=== PATIENT | male | born 1985 | race Caucasian/White ===

== ENCOUNTER 2018-05-12 04:00 | Emergency (ER) | payer BC ==
[~2018-05-12] VITALS: Ht 177.8 cm; Wt 79.4 kg
[~2018-05-12 04:00] MED LIST: IBUPROFEN800 MG PO
== END 2018-05-12 15:38 | disposition home or self-care (01) ==
LOC: ED 04:00
PROC: 0T9B70Z Drainage of Bladder with Drainage Device, Via Natural or Artificial Opening (ICD-10-PCS; principal; 2018-05-12)
DX: F29 Unspecified psychosis not due to a substance or known physiological condition (principal); F15.10 Other stimulant abuse, uncomplicated; F17.200 Nicotine dependence, unspecified, uncomplicated; Z88.0 Allergy status to penicillin
CPT/HCPCS: 51701; 80053; 85025; 96361; 96374; 96375; 99284; G0480; J0515; J1630; J2060; J7030

== ENCOUNTER 2023-06-22 10:29 | Emergency (ER) | payer OTHER ==
[~2023-06-22] VITALS: Ht 177.8 cm; Wt 90.7 kg
--- OUTSIDE RECORDS SUMMARY | ~2023-06-22 | XMS | Continuity of Care Document ---
Demographics + + + | Address | [address] | | | [place] [address] | + + + | Preferred Language | Unknown | + + + | Marital Status | Never | + + + | Mosque Affiliation | Unknown | + + + | Race | White | + + + | Ethnic Group | Not or | + + + Author + + + | Author | [facility] | + + + | Organization | [facility] | + + + | Address | [address] | | | [place] [address] | + + + | Phone | | + + + Care Team Providers + + + + | Care Conductor Freight Name | Role | Phone | + + + + Unavailable | Unavailable | + + + + Allergies and Intolerances + + + + + + | date | description | facility | reaction | severity | + + + + + + | (no date) | Penicillin | [facility] | (no reaction) | (no severity) | | [facility] | | | + + + + + + | (no date) | Penicillin | [facility] | (no reaction) | (no severity) | | [facility] | | | + + + + + + | (no date) | Penicillin | [facility] | (no reaction) | (no severity) | | [facility] | | | + + + + + + | (no date) | Penicillin | [facility] | (no reaction) | (no severity) | | [facility] | | | + + + + + + Encounters No information. Functional Status No information. Immunizations No information. Medications No information. Problems + + + + | date | description | facility | + + + + | 2016-09-05 00:00 | Elevated blood pressure | [facility] | + + + + | 2016-09-05 00:00 | Contusion of left foot | [facility] | + + + + | 2016-09-21 00:00 | Encounter for medical | [facility] | | | screening examination | | + + + + | 2022-12-11 00:00 | Patient left without being | [facility] | | | seen | | + + + + Procedures No information. Results/Labs No information. Social History No information. Vital Signs + + + +---------+ | date | measurement | value | units | + + + +---------+ | 2022-12-11 00:00 | BMI | 30.8 | kg/m2 | + + + +---------+ | 2022-12-11 00:00 | BP_diastolic | 95 | mmHg | + + + +---------+ | 2022-12-11 00:00 | BP_systolic | 138 | mmHg | + + + +---------+ | 2022-12-11 00:00 | heart_rate | 92 | /min | + + + +---------+ | 2022-12-11 00:00 | height_metric | 177.8 | cm | + + + +---------+ | 2022-12-11 00:00 | height_standard | 70 | in | + + + +---------+ | 2022-12-11 00:00 | o2_saturation | 99 | % | + + + +---------+ | 2022-12-11 00:00 | respiration_rate | 22 | /min | + + + +---------+ | 2022-12-11 00:00 | temperature_metric | 36.56 | C | | | | | | + + + +---------+ | 2022-12-11 00:00 | | 97.8 | F | | | temperature_standar | | | | | d | | | + + + +---------+ | 2022-12-11 00:00 | weight_metric | 97.52 | kg | + + + +---------+ | 2022-12-11 00:00 | weight_standard | 214.99 | lb | + + + +---------+ | 2022-12-11 00:00 | weight_standard | 215 | lb | + + + +---------+"
--- OUTSIDE RECORDS SUMMARY | ~2023-06-22 | XMS | Continuity of Care Document ---
Demographics + + + | Address | [address] | | | [place] [address] | + + + | Preferred Language | Unknown | + + + | Marital Status | Never | + + + | Presybeterian Affiliation | Unknown | + + + | Race | White | + + + | Ethnic Group | Not or | + + + Author + + + | Author | [facility] | + + + | Organization | [facility] | + + + | Address | [address] | | | [place] [address] | + + + | Phone | | + + + Care Team Providers + + + + | Care Teller Coordinator Name | Role | Phone | + [...] 2016-09-05 00:00 | Elevated blood pressure | [facility] | + + + + | 2016-09-05 00:00 | Contusion of left foot | [facility] | + + + + | 2016-09-21 00:00 | Encounter for medical | [facility] | | | screening examination | | + + + + | 2022-12-11 00:00 | [facility] left without being [facility] | | [facility] | | + [...]
[2023-06-22 11:57] LABS: BASOPHILS 0.3 % (0-2); EOSINOPHILS 1.9 % (0-6); HEMATOCRIT 39.8 % (35.0-50.0); HEMOGLOBIN 13.7 g/dL (12.0-18.0); LYMPHOCYTES 25.7 % (24-44); MCH 29.5 (27-36); MCHC 34.4 g/dl (30-36); MCV 85.6 fl (81-99); MONOCYTES 10.1 % (0-12); PLATELET COUNT 350 K/uL (140-440); RBC 4.65 M/ul (4.3-5.7); RDW 12.8 (10.5-15.0)
[2023-06-22 12:12] LABS: ALBUMIN 3.6 g/dL (3.4-5.0); ALBUMIN/GLOBULIN RATIO 0.95 (1.1-2.4); ANION GAP 12.7 (7-21); BILIRUBIN, TOTAL 0.9 ng/dL (0.2-1.0); BUN/CREATININE RATIO 15.73 (6.0-28.6); CALCIUM 8.2 mg/dL (8.5-10.1); CREATININE, SERUM 0.89 mg/dL (0.70-1.30); POTASSIUM 2.7 mmol/L (3.5-5.1); PROTEIN, TOTAL 7.4 g/dL (6.4-8.2)
[2023-06-22 12:56] LABS: BILIRUBIN, URINE NEGATIVE (negative); BLOOD/HGB, URINE NEGATIVE (Negative); KETONE, URINE SMALL (Negative); LEUK ESTERASE, URINE NEGATIVE (negative); NITRITE, URINE NEGATIVE (negative)
[2023-06-22 12:57] LABS: AMPHETAMINES, UR POSITIVE (NEGATIVE); BARBITURATES, UR NEGATIVE (NEGATIVE); BENZODIAZEPINES, UR NEGATIVE (NEGATIVE); BUPRENORPHINE,UR NEGATIVE (NEGATIVE); COCAINE, UR NEGATIVE (NEGATIVE); MARIJUANA (THC), UR NEGATIVE (NEGATIVE); MDMA, UR NEGATIVE (NEGATIVE); METHADONE, UR NEGATIVE (NEGATIVE); METHAMPHETAMINE, UR POSITIVE (NEGATIVE); OPIATES, UR NEGATIVE (NEGATIVE); OXYCODONE, UR NEGATIVE (NEGATIVE); PHENCYCLIDINE, UR NEGATIVE (NEGATIVE); TRICYCLIC ANTIDEPRESSANT, UR NEGATIVE (NEGATIVE)
[2023-06-22 13:59] LABS: ERYTHROCYTE SEDIMENTATION RATE 8
[2023-06-22 16:15] VITALS: BP 123/79
== END 2023-06-22 16:16 | disposition home or self-care (01) ==
LOC: ED 10:29
PROVIDERS: Emergency Medicine
DX: M54.50 Low back pain, unspecified (principal); J40 Bronchitis, not specified as acute or chronic; F19.10 Other psychoactive substance abuse, uncomplicated; S83.92XA Sprain of unspecified site of left knee, initial encounter; F17.200 Nicotine dependence, unspecified, uncomplicated; X58.XXXA Exposure to other specified factors, initial encounter; Z88.0 Allergy status to penicillin
CPT/HCPCS: 36415; 71045; 73560; 80053; 81003; 85025; 85651; 86140; 96374; 99284-25; A9270; J1885; J7030

== ENCOUNTER 2025-04-02 12:47 | Emergency (ER) | payer OTHER ==
[~2025-04-02] VITALS: Ht 177.8 cm; Wt 129.0 kg
[~2025-04-02 12:47] MED LIST changes: +LITHIUM CARBON300 MG PO; +PROTONIX40 MG PO; +QUETIAPINE FUM400 MG PO; +VENTOLIN HFA18 GM INH
[2025-04-02] MEDS ORDERED: PRAZOSIN HCL5 MG PO (13:11)
[2025-04-02] MEDS ORDERED: ABILIFY2 MG PO (13:11)
[2025-04-02] MEDS ORDERED: WELLBUTRIN SR100 MG PO (13:12)
[2025-04-02] MEDS ORDERED: ondansetron HCL 4 MG/2 ML VIAL IV ONE (13:30)
[2025-04-02 13:37] LABS: BASOPHILS 0.2 % (0.2-1.2); EOSINOPHILS 3.8 % (0.8-7.0); HEMATOCRIT 40.4 % (40.1-51.0); HEMOGLOBIN 13.4 g/dL (13.7-17.5); LYMPHOCYTES 23.9 % (21.8-53.1); MCH 29.3 PG (25.7-32.2); MCHC 33.2 g/dL (32.3-36.5); MCV 88.2 fL (79.0-92.2); MONOCYTES 7.6 % (5.3-12.2); NEUTROPHILS 63.9 % (34.0-67.9); PLATELET COUNT 304 K/uL (163-337); RBC 4.58 M/uL (4.63-6.08)
[2025-04-02 13:57] LABS: ALBUMIN 3.5 g/dL (3.4-5.0); ALBUMIN/GLOBULIN RATIO 1.03 (1.1-2.4); ANION GAP 12.1 (7-21); BILIRUBIN, TOTAL 0.4 mg/dL (0.2-1.0); BUN/CREATININE RATIO 11.97 (6.0-28.6); CALCIUM 8.5 mg/dL (8.5-10.1); CREATININE, SERUM 1.42 mg/dL (0.70-1.30); POTASSIUM 4.1 mmol/L (3.5-5.1); PROTEIN, TOTAL 6.9 g/dL (6.4-8.2)
[2025-04-02] MEDS ORDERED: HYDROmorphone HCL 1 MG/ML SYR IV ONE (14:45)
[2025-04-02] MEDS ORDERED: SODIUM CHLORIDE 0.9% 1,000 ML IV PRN (14:45)
[2025-04-02 19:42] VITALS: BP 127/88
--- NOTE | 2025-04-03 10:13 | EKG ---
[facility] [address] [place] [address] Signed Normal sinus rhythm Prolonged QT Abnormal ECG When compared with ECG of 19-JAN-2024 06:12, No significant change was found Confirmed by Tyler Zheng DO ([id number]) on 04/03/2025 10:13:33 AM Electronically Signed By: TYLER ZHENG DO 04/03/25 1013 PATIENT NAME: LORIN WANG ZACH Electrocardiogram DATE OF : 81 PHYSICIAN: TYLER ZHENG DO REPORT #: [id number] REPORT IS CONFIDENTIAL AND NOT TO BE RELEASED WITHOUT AUTHORIZATION
== END 2025-04-02 19:42 | disposition home or self-care (01) ==
LOC: ED 12:47
PROVIDERS: Emergency Medicine
DX: R10.11 Right upper quadrant pain (principal); Z88.0 Allergy status to penicillin; Z79.899 Other long term (current) drug therapy
CPT/HCPCS: 36415; 71045; 74177; 76705; 80053; 83690; 83880; 84484; 85025; 96375; 99284-25; J1171; J2405; J7030; Q9967

== ENCOUNTER 2025-05-20 10:24 | Emergency (ER) | payer OTHER ==
[~2025-05-20] VITALS: Ht 177.8 cm; Wt 116.9 kg
[~2025-05-20 10:24] MED LIST changes: +ABILIFY2 MG PO; +PRAZOSIN HCL5 MG PO; +WELLBUTRIN SR100 MG PO
[2025-05-20] MEDS ORDERED: ACETAMINOPHEN 500 MG TAB PO ONE (11:15)
[2025-05-20] MEDS ORDERED: NAPROSYN500 MG PO (12:44)
[2025-05-20] MEDS ORDERED: HYDROCODON-ACE1 EA10 PO (12:44)
[2025-05-20 13:36] VITALS: BP 127/83
== END 2025-05-20 13:38 | disposition home or self-care (01) ==
LOC: ED 10:24
DX: S92.342A Displaced fracture of fourth metatarsal bone, left foot, initial encounter for closed fracture (principal); K21.9 Gastro-esophageal reflux disease without esophagitis; J44.9 Chronic obstructive pulmonary disease, unspecified; F17.200 Nicotine dependence, unspecified, uncomplicated; Z88.0 Allergy status to penicillin; Z79.899 Other long term (current) drug therapy; W17.89XA Other fall from one level to another, initial encounter
CPT/HCPCS: 73630; 99283; A9270